=== PATIENT | female | born 1960 | race Caucasian/White ===

== ENCOUNTER 2023-06-21 07:26 | Day surgery (SDC) | payer BC, MEDICAID ==
[~2023-06-21] VITALS: Ht 162.6 cm; Wt 131.5 kg
[2023-06-21] MEDS ORDERED: MEPERIDINE 100 MG INJ. 100 MG/ML VIAL ONE (07:39)
[2023-06-21] MEDS ORDERED: MIDAZOLAM HCL 5 MG/5 ML VIAL ONE (07:39)
[2023-06-21 09:05] VITALS: O2SAT 97
[2023-06-21 14:14] VITALS: BP_SYST 98; PULSE 59; RESP 13; TEMP 98.2
== END 2023-06-21 12:30 | disposition home or self-care (01) ==
LOC: SDS 07:26 → SMU 07:29 → SDS 12:30
PROVIDERS: ATTEND Internal Medicine
DX: R19.4 Change in bowel habit (principal); D12.3 Benign neoplasm of transverse colon; D12.2 Benign neoplasm of ascending colon; R10.9 Unspecified abdominal pain; K57.30 Diverticulosis of large intestine without perforation or abscess without bleeding; K64.8 Other hemorrhoids; I10 Essential (primary) hypertension; E11.9 Type 2 diabetes mellitus without complications; E78.5 Hyperlipidemia, unspecified; F41.9 Anxiety disorder, unspecified; F32.A Depression, unspecified; Z79.84 Long term (current) use of oral hypoglycemic drugs; Z79.899 Other long term (current) drug therapy; Z98.890 Other specified postprocedural states; Z83.79 Family history of other diseases of the digestive system
CPT/HCPCS: 45380; 45385; 99152; 82948; 88305; G0378; J2250; J2175